=== PATIENT | female | born 1980 | race Caucasian/White ===

== ENCOUNTER 2018-10-21 00:21 | Observation (INO) | payer OTHER ==
[2013-09-13 15:33] VITALS: Ht 167.6 cm; Wt 73.0 kg
[~2018-10-21] VITALS: Ht 167.6 cm; Wt 73.0 kg
[2018-10-21] VITALS (13 sets, daily range): BP systolic 91–122; BP diastolic 64–78
[~2018-10-21 00:21] MED LIST: AMPH20TA18 PO; BUTA1CAP5 PO; DOCU240C67 PO; IBUP-136 PO; IBUP-1671 PO; LOR5/325 PO; NORE1PAT3 TD; OXYC-373 PO; PER PO; PNV1TABL77 PO; TRAM-420 PO
[2018-10-21] MEDS ORDERED: DEXAMETHASONE SOD 4 MG/ML VIAL ONE (09:17)
[2018-10-21] MEDS ORDERED: PROPOFOL EMUL(*) 10MG/ML 20 ML 20 ML ONE (09:33)
[2018-10-21] MEDS ORDERED: fentaNYL CITR 250 MCG/5 ML AMP ONE (09:34)
[2018-10-21] MEDS ORDERED: LIDOCAINE 2% IV 100 MG/5ML SYR ONE (09:35)
[2018-10-21 10:17] LABS: PLATELET COUNT, AUTOMATED 260 K/uL (150-450)
[2018-10-21] MEDS ORDERED: ROPIVACAINE 0.2% 20 ML VIAL ONE (10:53)
[2018-10-21] MEDS ORDERED: MANNITOL* (20%)100 GM/500ML BG 500 ML IVPB ONE (10:53)
[2018-10-21] MEDS ORDERED: MIDAZOLAM 2 MG/2 ML VIAL IVP PRN (11:00)
[2018-10-21] MEDS ORDERED: NORMOSOL R SOLN(*) 1000 ML BAG 1,000 ML IV PRN (11:00)
[2018-10-21] MEDS ORDERED: LIDOCAINE/SOD BICARB 8.4% SYR ID ONE (11:00)
[2018-10-21] MEDS ORDERED: FAMOTIDINE 20 MG TAB PO ONE (11:00)
[2018-10-21] MEDS ORDERED: cefOXitin/DEX(*) 2GM/50ML PREM 50 ML IVPB ONE (11:05)
[2018-10-21] MEDS ORDERED: ROCURONIUM BR 10 MG/ML 5 ML SY 5 ML ONE (11:25)
[2018-10-21] MEDS ORDERED: ONDANSETRON 4 MG/2 ML VIAL ONE (11:40)
[2018-10-21] MEDS ORDERED: KETAMINE HCL 200 MG/20 ML MDV ONE ×2 (11:41→12:37)
[2018-10-21] MEDS ORDERED: SUGAMMADEX SOD 200 MG/2 ML SDV ONE (12:14)
[2018-10-21] MEDS ORDERED: fentaNYL CITR 100 MCG/2 ML AMP ONE ×3 (12:34→14:20)
[2018-10-21] MEDS ORDERED: KETOROLAC 30 MG/ML VIAL ONE (13:15)
[2018-10-21] MEDS ORDERED: DLR(*) 1000 ML BAG 1,000 ML IV PRN (13:39)
[2018-10-21] MEDS ORDERED: PROMETHAZINE 25 MG/ML 1 ML AMP IVP PRN (13:40)
[2018-10-21] MEDS ORDERED: ZOLPIDEM TARTRATE 10 MG TAB PO PRN (13:40)
[2018-10-21] MEDS ORDERED: ONDANSETRON 4 MG/2 ML VIAL IV PRN (13:40)
[2018-10-21] MEDS ORDERED: ACETAMINOPHEN 325 MG TAB PO PRN (13:40)
[2018-10-21] MEDS ORDERED: HYDROmorphone HCL 2 MG TAB PO PRN (13:40)
--- NOTE | 2018-10-21 13:42 | Post Operative Note ---
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
[2018-10-21] MEDS ORDERED: SCOP1PAT2 TD (13:43)
[2018-10-21] MEDS ORDERED: DOCU-416 PO (13:49)
[2018-10-21] MEDS ORDERED: IBUP800T37 PO (13:49)
[2018-10-21] MEDS ORDERED: OXYC-865 PO (13:49)
[2018-10-21] MEDS: SIMETHICONE 80 MG CHEW CHEW PRN ×2 (16:01→20:01)
[2018-10-21] MEDS: oxyCODON/ACET (*)5/325MG (CII) 1 TAB TAB PO PRN ×2 (16:01→20:01)
[2018-10-21] MEDS: KETOROLAC 30 MG/ML VIAL IVP SCH (18:43)
[2018-10-21] MEDS: FAMOTIDINE 20 MG TAB PO SCH (21:00)
[2018-10-21] MEDS: DOCUSATE CALCIUM 240 MG CAP PO SCH (21:00)
[2018-10-22] MEDS: SIMETHICONE 80 MG CHEW CHEW PRN (00:17)
[2018-10-22] MEDS: oxyCODON/ACET (*)5/325MG (CII) 1 TAB TAB PO PRN ×3 (00:18→10:43)
[2018-10-22] MEDS: KETOROLAC 30 MG/ML VIAL IVP SCH ×2 (00:24→05:49)
[2018-10-22 02:42] VITALS: BP 99/66
[2018-10-22 05:59] LABS: PLATELET COUNT, AUTOMATED 191 K/uL (150-450)
[2018-10-22 08:00] VITALS: BP 95/69
[2018-10-22] MEDS ORDERED: INFLUENZA VIRUS VAC 0.5ML SYR IM ONLY ONE (09:00)
[2018-10-22] MEDS: DOCUSATE CALCIUM 240 MG CAP PO SCH (10:42)
[2018-10-22] MEDS: FAMOTIDINE 20 MG TAB PO SCH (10:43)
--- NOTE | 2018-10-22 11:05 | OPERATIVE REPORT 1 ---
EVENT DATE: October 21, 2018 SURGEON: Simón Diez MD ANESTHESIOLOGIST: Jersey Boykin MD ANESTHESIA: General endotracheal. ASSEMBLY LOADER: Jessica Jaramillo PA-C PREOPERATIVE DIAGNOSIS 1. PMDD. 2. Enlarged uterus. 3. Menorrhagia. POSTOPERATIVE DIAGNOSIS 1. PMDD. 2. Enlarged uterus. 3. Menorrhagia. PROCEDURE PERFORMED 1. Robotic-assisted total laparoscopic hysterectomy. 2. Bilateral salpingectomy. 3. Modified Castañeda's culdoplasty. 4. Diagnostic cystoscopy. ESTIMATED BLOOD LOSS Minimal. FLUIDS 1000 cc IV Crystalloid. URINE OUTPUT Not measured. FINDINGS Enlarged uterus, hypervascularity from the uterine vasculature. Evidence of peritoneal inflammation in the posterior ovarian fossa bilaterally and near the uterosacral ligaments and posterior cervix. DESCRIPTION OF PROCEDURE The patient was brought to the operating room. IV fluids established. She was placed in the dorsal supine position on the operating table and placed under general endotracheal anesthesia by Dr. Boykin. She was then moved to the dorsal lithotomy position and prepped and draped in the usual sterile fashion. A weighted speculum was placed in the vagina. The cervix was grasped on the anterior lip with a single-toothed tenaculum. It was carefully sounded, retroverted to a depth of 8 cm. A size large VCare uterine manipulator was selected. The cervix was dilated to accommodate, passed through the cervix into the uterus, bulb inflated and secured and the VCare cup was sutured to the cervix using a Vicryl stitch. The Pneumocup was approximated against the VCare cup and secured in place. The Bonilla catheter was placed indwelling to dependent drainage. Legs were brought into the supine position and gloves were changed. We proceeded laparoscopically by measuring from the target anatomy cephalad to the umbilicus. Therefore, the umbilical area was infiltrated with 0.2% Naropin and an 8 mm stab incision was made. The Veress needle was passed through this incision while elevating and stabilizing the anterior abdominal wall and the pneumoperitoneum was created to an intraabdominal pressure of 20 mmHg. The Veress needle was removed and an 8 mm bladeless robotic trocar was passed through this incision under direct visualization. Once this was performed, additional ports were placed as follows: Two additional ports left lateral spaced 8 cm apart and right lateral spaced 8 cm apart two additional ports. These were all placed under similar technique and under direct visualization through the scope. All ports were adjusted for remote center and then the patient was moved to the Trendelenburg position. The bowel was moved away from the pelvis. The target anatomy was inspected. Normal appearing ovaries bilaterally and tubes above findings were noted and photo documented. The robot was then brought overlying the patient and docked. Targeting procedure was performed and completed and the additional arms were docked and set. All instruments were placed and brought into the abdomen under direct visualization through the scope. Once completed, I scrubbed out and presented to the console for the procedure which proceeded as follows: The right fallopian tube was grasped and put on stretch exposing the mesosalpinx. The tube was dissected away from its pelvic connection through the mesosalpinx using the vessel sealer up to the uteroovarian ligament. This was then cauterized and transected with the vessel sealer. The round ligament was then cauterized and transected through the vessel sealer entering the broad ligament which was into anterior and posterior leaflets. The anterior dissection was completed by dissecting along the anterior uterus while elevating the parietal peritoneum and a bladder flap was created. The VCare cup was observed indenting the vagina from below. The dissection proceeded down to and overlying this area. Posterior peritoneum was then dissected to skeletonize the uterine vasculature which was then cauterized with the vessel sealer at a perpendicular angle x2 and transected. Parallel bites along the lateral uterus was then performed to dissect this vascular pedicle away from the operative area, down to and overlying the VCare cup. Attention was then turned to the contralateral side which in likewise fashion the tube was dissected away from its mesosalpinx connection up to the uteroovarian ligament. The uteroovarian ligament was cauterized and transected with the vessel sealer. The round ligament was cauterized and transected with the vessel sealer entering the broad ligament and the broad ligament was then into anterior and posterior leaflets. The anterior dissection was completed using monopolar scissor and the uterine vasculature was skeletonized down to the uterosacral ligament. The uterine vessels were cauterized at a perpendicular angle x2, transected and parallel bites along the uterus were then performed down to and overlying the VCare cup. An anterior colpotomy had been performed to identify the VCare cup. This was extended circumferentially around the cervix, through the uterosacral ligaments bilaterally and to the contralateral side, releasing the uterus from its pelvic connection. This was then removed through the vagina. A few capillary bleeders were then cauterized along the vaginal cuff. Instruments were changed for suturing and an 0 Vicryl was used to suture ligate in a [id number] fashion the uterosacral ligaments to the ipsilateral vaginal angle which secured any capillary bleeding on this location. This was performed bilaterally, followed by a 2-0 V-Loc stitch which was used to close the remaining vaginal cuff in a running nonlocking fashion along its entire length and excellent hemostasis was achieved in reapproximation of the skin edges. The pelvis was then copiously irrigated and suctioned dry. No visible bleeders. All pedicles were hemostatic and stable. Therefore, the procedure was terminated. The instruments were removed. The robot was undocked. The trocars and all instruments were removed from the abdomen after pneumoperitoneum had been suctioned out. The skin incisions were repaired with 4-0 Monocryl simple subdermal and covered with Dermabond skin adhesive. Diagnostic cystoscopy was then performed using 20% Mannitol for insufflation. The entire bladder was inspected and found to be without injury. Both ureters were observed with excellent urine jets into the bladder confirming ureteral patency. No visible complications. The bladder was drained. The Bonilla catheter was left out. She was returned to the dorsal supine position, awakened from anesthesia in stable condition and taken to recovery. Sponge, lap, needle and instrument counts were all correct x3. MTDD
--- NOTE | 2018-10-22 11:21 | OB/GYN Progress Note ---
OB Subjective Progress Notes Subjective Feeling much better. Ready to go home. Passing gas and ambulating well. GI: NEG Nausea : Voiding Well Pain: Mild OB Objective Physical Exam Vital Signs Date Time Temp Pulse Resp B/P (MAP) Pulse Ox O2 Delivery O2 Flow Rate FiO2 10/22/18 08:00 97.9 57 16 95/69 (78) Room Air 10/22/18 02:42 95 10/21/18 18:36 1.0 Intake and Output 10/22/18 07:01 Intake Total 2150 ml Output Total 680 ml Balance 1470 ml Intake IV Total 2150 ml Output Urine Total 380 ml Emesis 300 ml # Voids 2 # Emeses 1 General Appearance: Alert/Awake/No Acute Distress Neurological: No Gross deficits Cardiovascular: Normal Rhythm & Peripheral Pulses, Regular Rate and Rhythm Respiratory: No Respiratory Distress, Clear to Auscultation Abdomen: Soft, Non-Tender, Non-Distended Incision: Clean, Dry, Intact, Dermabond Integumentary: Skin Intact without Lesions or Rash Psychological: Alert & Oriented X3, Appropriate Mood & Affect Result Diagram: 10/22/18 0540 10/21/18 1004 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 F/U at 2 weeks. All questions answered. (3) Premenstrual dysphoric disorder (4) Enlarged uterus (5) Menorrhagia PANDA BUCHANAN MD Oct 22, 2018 11:21
--- NOTE | 2018-10-22 11:23 | Short(Outpt) Discharge Summary ---
Discharge Summary Reason for Hosp/Final Diag: (1) Status post robot-assisted surgical procedure (2) Other specified aftercare following surgery Hospital Course & Plan: Reviewed discharge precautions and instructions. F/U at 2 weeks. All questions answered. (3) Premenstrual dysphoric disorder (4) Enlarged uterus (5) Menorrhagia Departure Discharge to: Home, Self Care Discharge Instructions Home Meds Active Scripts Docusate Sodium (COLACE) 100 Mg Capsule, 100 MG PO BID PRN for CONSTIPATION for 10 Days, #20 CAPSULE Prov:JACKELYN HOWELL 10/21/18 Oxycodone Hcl/Acetaminophen (PERCOCET 5-325 MG TABLET) 1 Each Tablet, 1 EACH PO Q4-6H PRN for PAIN, #20 TAB 0 Refills TAKE 1 TABLET NEEDED FOR PAIN - NO CLOSER THAN EVERY 4-6 HOURS. Prov:JACKELYN HOWELL 10/21/18 Ibuprofen (IBUPROFEN) 800 Mg Tablet, 1 TAB PO Q8H, #30 TAB 0 Refills Take with food every 8 hours. Prov:JACKELYN HOWELL 10/21/18 Reported Medications Scopolamine (Transderm-Scop) 1 Mg/3 Day Patch.td.3, 1 PATCH TD 10/21/18 Amphet Asp/Amphet/D-Amphet (ADDERALL 20 MG TABLET) 20 Mg Tablet, 20 MG PO QDAY 10/18/18 Ibuprofen (MOTRIN IB) 200 Mg Tablet, 4 TAB PO PRN 11/01/13 Discontinued Reported Medications Norelgestromin/Ethin.estradiol (Xulane Patch) 1 Each Patch.tdwk, 1 PATCH TD QWEEK 10/18/18 [None] No Conflict Check, 0 Refills 07/03/10 Oxycodone Hcl/Acetaminophen (OXYCODONE-ACETAMINOPHEN 5-325) 1 Each Tablet, 1-2 EACH PO Q4H 11/01/13 Pnv Cmb#21/Iron/Folic Acid ( COMPLETE CAPLET) 1 Each Tablet, 1 EACH PO 09/13/13 Oxycodone/Acetaminophen (OXYCODONE/ACETAMINOPHEN 5MG/325 MG) 5 Mg/325 Mg Tab, 1 - 2 TAB PO Q4-6H PRN, #20 0 Refills 07/03/10 Follow up Referrals: INTERNET MARKETER - In Two Weeks @ [facility] with CHANEL,PANDA MD Diet: Regular Activity: As Tolerated, No Heavy Lifting, No Exertion Copies to: PANDA BUCHANAN MD ; Problem Qualifiers (1) Menorrhagia: Menorrahagia type: with irregular cycle Qualified Codes: N92.1 - Excessive and frequent menstruation with irregular cycle PANDA BUCHANAN MD Oct 22, 2018 11:23
[2018-10-22] MEDS ORDERED: IBUPROFEN 800 MG TAB PO PRN (12:00)
[2018-10-23] MEDS ORDERED: OXYC-865 PO (12:14)
== END 2018-10-22 11:22 | disposition home or self-care (01) ==
LOC: OR 00:21 → OB 15:30 → INTOOBSV 15:30
PROVIDERS: ADMIT Obstetrics & Gynecology; ATTEND Obstetrics & Gynecology
DX: F32.81 Premenstrual dysphoric disorder (principal); N85.2 Hypertrophy of uterus; N92.0 Excessive and frequent menstruation with regular cycle
CPT/HCPCS: 36415; 58571; 84703; 85025; 88307; G0378; J0694; J1100; J1885; J2001; J2405; J2550; J2704; J2795; J3010; J3490; S2900; 82040; 82247; 82310; 82374; 82435; 82565; 82947; 84075; 84132; 84155; 84295; 84450; 84460; 84520

== ENCOUNTER 2018-10-22 19:49 | Emergency (ER) | payer OTHER ==
[2013-09-13 15:33] VITALS: Wt 73.0 kg
[~2018-10-22 19:49] MED LIST changes: +DOCU-416 PO; +IBUP800T37 PO; +OXYC-865 PO; +SCOP1PAT2 TD
--- NOTE | 2018-10-22 20:00 | ER Report ---
History and Physical Time Seen By MD: 19:58 Hx. of Stated Complaint: patient had a histerectomy yesterday, was sent with scripts but was never called to be told they were ready to be picked up, patient thought she could make it through with justr ibuprofen and its not enough, told by to come to ER. HPI/ROS CHIEF COMPLAINT: Need of a prescription medication HISTORY OF PRESENT ILLNESS: 38-year-old female patient presents to emergency room with complaint of lower abdominal pain. Patient was in the hospital and discharged earlier today after having a hysterectomy. She states that a prescription was sent into her pharmacy, pulmonary and, and she never received a phone call that he was ready. She states that she thought that she could get through with just ibuprofen for tonight. She states that the pain did become to significant over the last hour and half. Patient denies any fevers, chills, nausea, vomiting or diarrhea. She states she does have significant amounts of abdominal pain, which she rates a 7-8 out of 10. Allergies: Coded Allergies: codeine (Verified Allergy, Mild, 10/22/18) Home Meds Active Scripts Docusate Sodium (COLACE) 100 Mg Capsule, 100 MG PO BID PRN for CONSTIPATION for 10 Days, #20 CAPSULE Prov:JACKELYN HOWELL 10/21/18 Oxycodone Hcl/Acetaminophen (PERCOCET 5-325 MG TABLET) 1 Each Tablet, 1 EACH PO Q4-6H PRN for PAIN, #20 TAB 0 Refills TAKE 1 TABLET NEEDED FOR PAIN - NO CLOSER THAN EVERY 4-6 HOURS. Prov:JACKELYN HOWELL 10/21/18 Ibuprofen (IBUPROFEN) 800 Mg Tablet, 1 TAB PO Q8H, #30 TAB 0 Refills Take with food every 8 hours. Prov:JACKELYN HOWELL 10/21/18 Reported Medications Scopolamine (Transderm-Scop) 1 Mg/3 Day Patch.td.3, 1 PATCH TD 10/21/18 Amphet Asp/Amphet/D-Amphet (ADDERALL 20 MG TABLET) 20 Mg Tablet, 20 MG PO QDAY 10/18/18 Ibuprofen (MOTRIN IB) 200 Mg Tablet, 4 TAB PO PRN 11/01/13 Discontinued Reported Medications Norelgestromin/Ethin.estradiol (Xulane Patch) 1 Each Patch.tdwk, 1 PATCH TD QWEEK 10/18/18 [None] No Conflict Check, 0 Refills 07/03/10 Oxycodone Hcl/Acetaminophen (OXYCODONE-ACETAMINOPHEN 5-325) 1 Each Tablet, 1-2 EACH PO Q4H 11/01/13 Pnv Cmb#21/Iron/Folic Acid ( COMPLETE CAPLET) 1 Each Tablet, 1 EACH PO 09/13/13 Oxycodone/Acetaminophen (OXYCODONE/ACETAMINOPHEN 5MG/325 MG) 5 Mg/325 Mg Tab, 1 - 2 TAB PO Q4-6H PRN, #20 0 Refills 07/03/10 Past Medical/Surgical History Patient has a past medical history of menorrhagia. Patient surgical history of hysterectomy. Reviewed Nurses Notes: Yes Hx Smoking: Yes (QUIT 04/27 PPD ) Smoking Status: Former Smoker Exposure to Second Hand Smoke?: No Hx Substance Use Disorder: No Hx Alcohol Use: Yes Constitutional Vital Sign - Last 24 Hours 10/22/18 19:55 Temp 97.9 Pulse 57 Resp 24 B/P (MAP) 114/86 Pulse Ox 95 Physical Exam General appearance: Alert no distress. Respiratory: Chest is non tender, lungs are clear to auscultation. Cardiac: Regular rate and rhythm. DIFFERENTIAL DIAGNOSIS: After history and physical exam differential diagnosis was considered for postsurgical abdominal pain. Medical Decision Making ED Course/Re-evaluation ED Course Patient was admitted to the exam room, history and physical were obtained. Differential diagnoses were considered. On examination lungs are clear, heart is regular. Patient is in obvious discomfort. We discussed starting an IV to give intravenous pain medication. Patient refused at this time saying that she has had enough with being stuck by needles. Patient was given one Percocet. On reevaluation patient states that her pain went from a 7-8 out of 10 down to a 5- 6. She states she does feel better. We did go ahead and opt to watch her for a few more minutes. She states that she is more comfortable is ready go home. She thinks that the pain may be improved due to her ibuprofen as well as the Percocet. Patient was given 4 doses of Percocet to go home with. She is to picker/puller her prescription tomorrow, if she is unable to picker/puller prescription from Dr. Diez she can go ahead and call the ER and I will be more than happy to give her prescription of a limited supply of pain medication get through the weekend. Patient verbalized understanding and agreement with plan. Decision to Disposition Date: Oct 22, 2018 Decision to Disposition Time: 21:04 Depart Departure Latest Vital Signs Vital Signs Date Time Temp Pulse Resp B/P (MAP) Pulse Ox O2 Delivery O2 Flow Rate FiO2 10/22/18 19:55 97.9 57 24 114/86 95 Impression: Primary Impression: Status post robot-assisted surgical procedure Condition: Improved Disposition: HOME OR SELF-CARE Patient Instructions: GENERAL ER DISCHARGE INSTRUCTIONS Additional Instructions: Limit activity by pain. Take the pain medication as needed for pain every 4-6 hours. Follow up with Dr. Diez as directed. Call tomorrow if you are unable to get your prescription and I will make sure you are taken care of. AUTUMN SANCHEZ Oct 22, 2018 20:00
[2018-10-22] MEDS ORDERED: oxyCODON/ACET (*)5/325MG (CII) 1 TAB TAB PO ONE (20:05)
[2018-10-22 21:00] VITALS: BP 111/76
[2018-10-22] MEDS ORDERED: oxyCODONE/ACETAMIN 5/325MG TH 2 TAB/BOTTLE PO ONE (21:05)
[2018-10-23] MEDS ORDERED: OXYC-865 PO (12:14)
== END 2018-10-22 21:09 | disposition home or self-care (01) ==
LOC: ER 20:04
DX: R10.30 Lower abdominal pain, unspecified (principal); Z90.710 Acquired absence of both cervix and uterus
CPT/HCPCS: 99283